=== PATIENT | female | born 2000 | race American Indian/Alaskan Native ===

== ENCOUNTER 2019-03-11 17:12 | Emergency (ER) | payer MEDICAID ==
--- NOTE | 2019-03-11 17:33 | Emergency Department Report ---
Chief Complaint: Upper Respiratory Infection Stated Complaint: FEVER Time Seen by Provider: 03/11/19 17:30 - HPI History of Present Illness: pt presents with a fever that began today did not take anything for the fever (+) sore throat (+) nausea (+) cough (+) congestion no V/D no PMHx no daily meds +marijuana non drinker denies tobacco MSE screening note: Focused history and physical exam performed. Due to findings the following was ordered: rapid strep, CXR ED Disposition for MSE Condition: Stable
[2019-03-11 17:55] LABS: Basophils % (Auto) 0.5 % (0.0-1.8); Eosinophils % (Auto) 0.1 % (0.0-4.3); Hematocrit 38.8 % (30.3-42.9); Hemoglobin 12.6 gm/dl (10.1-14.3); Lymphocytes # (Auto) 0.9 K/mm3 (1.2-5.4); Lymphocytes % (Auto) 24.1 % (13.4-35.0); Mean Corpuscular HGB Conc 32 % (30-34); Mean Corpuscular Volume 87 fl (79-97); Monocytes # (Auto) 0.6 K/mm3 (0.0-0.8); Platelet Count 230 K/mm3 (140-440); Red Blood Count 4.48 M/mm3 (3.65-5.03); Red Cell Distribution Width 12.9 % (13.2-15.2)
[2019-03-11 18:29] LABS: Bacteria,Urine 1+ /HPF (Negative); Bilirubin,Urine NEG (Negative); Blood,Urine NEG (Negative); Color,Urine Yellow (Yellow); Mucus,Urine 3+ /HPF; Urobilinogen,Urine < 2.0 mg/dL (<2.0)
[2019-03-11 18:33] LABS: HCG Qualitative,Urine Negative (Negative)
--- NOTE | 2019-03-11 19:47 | XRay Report ---
PROCEDURE: XR CHEST ROUTINE 2V HISTORY: cough, fever FINDINGS: Frontal and lateral views the chest were acquired. The heart is normal in size. The lungs a ppear clear. The pleura and mediastinum are within normal limits. IMPRESSION: No active disease in the chest This document is electronically signed by Dirk Villanueva MD., March 11 2019 07:45:09 PM ET
--- NOTE | 2019-03-11 20:40 | Emergency Department Report ---
ED Fever HPI - General Chief Complaint: Upper Respiratory Infection Stated Complaint: FEVER Time Seen by Provider: 03/11/19 17:30 Source: patient - History of Present Illness Timing/Duration: this morning Fever Severity/Quality: greater than 102 F Fever Therapy FACILITATOR: none Associated Symptoms: cough, nausea/vomiting ED Review of Systems ROS: Stated complaint: FEVER Other details as noted in HPI Comment: All other systems reviewed and negative Constitutional: fever Respiratory: cough. denies: shortness of breath Cardiovascular: denies: chest pain Gastrointestinal: nausea. denies: abdominal pain, vomiting Musculoskeletal: myalgia Neurological: denies: headache ED Past Medical Hx - Past Medical History Previous Medical History?: No - Surgical History Past Surgical History?: No - Social History Smoking Status: Never Smoker Substance Use Type: Marijuana ED Physical Exam - General Limitations: No Limitations General appearance: alert, in no apparent distress - Head Head exam: Present: atraumatic, normocephalic - Eye Eye exam: Present: normal appearance - ENT ENT exam: Present: mucous membranes moist - Neck Neck exam: Present: normal inspection - Respiratory Respiratory exam: Present: normal lung sounds bilaterally. Absent: respiratory distress - Cardiovascular Cardiovascular Exam: Present: normal rhythm, tachycardia - GI/Abdominal GI/Abdominal exam: Present: soft. Absent: distended, tenderness - Extremities Exam Extremities exam: Present: normal inspection - Neurological Exam Neurological exam: Present: alert, oriented X3 - Psychiatric Psychiatric exam: Present: normal affect, normal mood - Skin Skin exam: Present: warm, dry, intact, normal color. Absent: rash ED Course Vital Signs 03/11/19 03/11/19 17:31 20:48 Temperature 99.0 F 97.9 F Pulse Rate 112 H 92 H Respiratory 20 15 Rate Blood Pressure 111/63 104/70 [Left] O2 Sat by Pulse 99 99 Oximetry ED Medical Decision Making - Lab Data Result diagrams: 03/11/19 17:42 - Radiology Data Radiology results: report reviewed, image reviewed - Medical Decision Making - fever x 1 day - assoc cough, muscle aches, nausea - appears nontoxic, exam unremarkable - CXR, strep negative - likely viral illness - outpt f/u advised - returned precautions given - Differential Diagnosis strep throat, pneumonia, viral illness Critical care attestation.: If time is entered above; I have spent that time in minutes in the direct care of this critically ill patient, excluding procedure time. ED Disposition Clinical Impression: Upper respiratory infection, Viral illness Disposition: DC-01 TO HOME OR SELFCARE Is pt being admited?: No Condition: Stable Instructions: Upper Respiratory Infection (ED), Viral Syndrome (ED) Referrals: DARIO MONTERROSO MD [Primary Care Provider] - 3-5 Days [facility] [Provider Group] - 3-5 Days Time of Disposition: 20:39
[2019-03-11 20:49] VITALS: BP 104/70
== END 2019-03-11 20:48 | disposition home or self-care (01) ==
LOC: ED 17:12
DX: J06.9 Acute upper respiratory infection, unspecified (principal); F12.10 Cannabis abuse, uncomplicated; M79.10 Myalgia, unspecified site
CPT/HCPCS: 36415; 71046; 81001; 81025; 85025; 87116; 87430; 99284